=== PATIENT | female | born 1945 | race Caucasian/White ===

== ENCOUNTER 2024-05-30 11:53 | Day surgery (SDC) | payer MEDICARE ==
[~2024-05-30] VITALS: Ht 162.6 cm; Wt 90.1 kg
[~2024-05-30 11:53] MED LIST: ALLE180T33 PO; AMLO1TAB24 PO; FLUTISP NARES; LANS15CA3 PO; LEXA1TAB PO; LISI40TA4 PO; METO1TAB7 PO; PHENYLEPHRINE 10% OPHTH SOL 5ML OS PRN; ROSU20TA61 PO
[2024-05-30] MEDS: OFLOXACIN 0.3 % (OCUFLOX) OPTH SOL 5ML OS ONE (12:18)
[2024-05-30] MEDS: TROPICAMIDE 1% OPHTH SOLN 15ML OS SCH (12:19)
[2024-05-30] MEDS: PHENYLEPHRINE 2.5% OPHTH SOL 2ML OS SCH (12:19)
[2024-05-30] MEDS: ATROPINE SULFATE 1% OPHTH SOLN 2ML BTL OS SCH (12:19)
[2024-05-30] MEDS: LIDOCAINE 3.5 % 1ML OPHTH TOPICAL GEL OU ONE (12:19)
[2024-05-30] MEDS ORDERED: BENA25CA4 PO (12:35)
[2024-05-30] MEDS ORDERED: fentaNYL 100 MCG/2 ML INJECTION As Ordered ONE (13:03)
[2024-05-30] MEDS ORDERED: MIDAZOLAM INJ 2MG/2ML VIAL As Ordered ONE (13:04)
[2024-05-30] MEDS: CEFUROXIME 1MG/0.1ML INTRACAMERAL INJ As Ordered ONE (13:29)
[2024-05-30] MEDS: BSS IRRIG/VANCO(10MG)/TOBRA(5MG)/EPINEPH(1:1000-0.5CC)500ML BAG-ORONLY As Ordered ONE (13:29)
[2024-05-30] MEDS: LIDOCAINE 1% SDV 5ML VIAL As Ordered ONE (13:29)
[2024-05-30 13:40] VITALS: BP 135/68; TEMP 97.5; O2SAT 96
== END 2024-05-30 13:56 | disposition home or self-care (01) ==
LOC: M SDC 11:53
PROVIDERS: ATTEND Ophthalmology
DX: H25.12 Age-related nuclear cataract, left eye (principal); I10 Essential (primary) hypertension; R01.1 Cardiac murmur, unspecified; Z79.899 Other long term (current) drug therapy; Z88.0 Allergy status to penicillin; Z88.5 Allergy status to narcotic agent; Z88.2 Allergy status to sulfonamides; Z87.19 Personal history of other diseases of the digestive system; Z79.51 Long term (current) use of inhaled steroids
CPT/HCPCS: 66984; J0697; J2250; J3010; V2632

== ENCOUNTER 2024-07-25 10:34 | Day surgery (SDC) | payer MEDICARE ==
[~2024-07-25] VITALS: Ht 165.1 cm; Wt 90.3 kg
[~2024-07-25 10:34] MED LIST changes: +BENA25CA4 PO; +PHENYLEPHRINE 10% OPHTH SOL 5ML OD PRN; -PHENYLEPHRINE 10% OPHTH SOL 5ML OS PRN; +fentaNYL 100 MCG/2 ML INJECTION As Ordered ONE
[2024-07-25] MEDS: OFLOXACIN 0.3 % (OCUFLOX) OPTH SOL 5ML OD ONE (11:12)
[2024-07-25] MEDS: ATROPINE SULFATE 1% OPHTH SOLN 2ML BTL OD SCH (11:13)
[2024-07-25] MEDS: PHENYLEPHRINE 2.5% OPHTH SOL 2ML OD SCH (11:13)
[2024-07-25] MEDS: LIDOCAINE 3.5 % 1ML OPHTH TOPICAL GEL OU ONE (11:13)
[2024-07-25] MEDS: TROPICAMIDE 1% OPHTH SOLN 15ML OD SCH (11:13)
[2024-07-25] MEDS: MOXIFLOXACIN 0.6MG/0.4ML INTRAOCULAR SYRINGE As Ordered ONE (11:55)
[2024-07-25] MEDS: LIDOCAINE 1% SDV 5ML VIAL As Ordered ONE (11:55)
[2024-07-25] MEDS: BSS IRRIG/VANCO(10MG)/TOBRA(5MG)/EPINEPH(1:1000-0.5CC)500ML BAG-ORONLY As Ordered ONE (11:55)
[2024-07-25 12:06] VITALS: BP 143/68; TEMP 97.1; O2SAT 95
== END 2024-07-25 12:21 | disposition home or self-care (01) ==
LOC: M SDC 10:34
PROVIDERS: ATTEND Ophthalmology
DX: H25.11 Age-related nuclear cataract, right eye (principal); I10 Essential (primary) hypertension; K21.9 Gastro-esophageal reflux disease without esophagitis; K22.70 Barrett's esophagus without dysplasia; Z79.899 Other long term (current) drug therapy; Z88.2 Allergy status to sulfonamides; Z88.0 Allergy status to penicillin; Z88.5 Allergy status to narcotic agent
CPT/HCPCS: 66984; J3010; V2632